=== PATIENT | male | born 1970 | race Two or more races ===

== ENCOUNTER 2016-08-17 15:21 | Emergency (ER) | payer BC, OTHER ==
[~2016-08-17] VITALS: Ht 170.2 cm; Wt 65.7 kg
[2016-08-17 17:07] LABS: BLOOD UREA NITROGEN 18 mg/dL (7-18)
[2016-08-17 17:14] LABS: IS PT STATUS REG ER OR PRE ER? YES
[2016-08-17] MEDS ORDERED: MECLIZINE CHEWABLE 25 MG TAB PO ONE (19:30)
[2016-08-17] MEDS ORDERED: MECLIZINE CHEWABLE 25 MG TAB ONE (19:31)
[2016-08-17 19:36] VITALS: BP 115/70
== END 2016-08-17 19:39 | disposition home or self-care (01) ==
LOC: ED 19:33
DX: H81.391 Other peripheral vertigo, right ear (principal); H65.01 Acute serous otitis media, right ear
CPT/HCPCS: 36415; 71010; 80048; 82040; 84484; 85025; 93005; 99285